=== PATIENT | female | born 1995 ===

== ENCOUNTER 2023-01-25 04:37 | Emergency (ER) | payer OTHER ==
[~2023-01-25] VITALS: Ht 160 cm; Wt 81.6 kg
[~2023-01-25 04:37] MED LIST: ANUSOL-HC25 MG RC; DEPO-PROVER150 MG/ML; FIORICET 50-301 EACH PO
== END 2023-01-25 07:22 | disposition home or self-care (01) ==
LOC: ER 04:37 → EMR PED 04:41 → ER 04:41
DX: K52.89 Other specified noninfective gastroenteritis and colitis (principal); R11.10 Vomiting, unspecified; Z91.018 Allergy to other foods; Z20.822 Contact with and (suspected) exposure to COVID-19